=== PATIENT | male | born 1995 | race Two or more races ===

== ENCOUNTER 2022-08-28 22:36 | Emergency (ER) | payer OTHER ==
[~2022-08-28] VITALS: Ht 180.3 cm; Wt 61.7 kg
== END 2022-08-28 23:51 | disposition home or self-care (01) ==
LOC: ER 22:36
DX: M25.511 Pain in right shoulder (principal); V43.62XA Car passenger injured in collision with other type car in traffic accident, initial encounter; Y93.89 Activity, other specified; Y92.413 State road as the place of occurrence of the external cause